=== PATIENT | female | born 1995 | race Caucasian/White ===

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

== ENCOUNTER 2020-12-17 05:58 | Emergency (ER) | payer MEDICAID ==
[~2020-12-17] VITALS: Ht 152.4 cm; Wt 54.4 kg
[2020-12-17 06:39] VITALS: BP_SYST 115
[2020-12-17] MEDS ORDERED: NACL 0.9% 1,000 ML IV ONE (07:00)
[2020-12-17 07:24] LABS: BASOPHILS % (AUTO) 0.9 % (0.0-2.0); EOSINOPHILS # (AUTO) 0.2 K/uL (0.0-0.4); EOSINOPHILS % (AUTO) 3.2 % (0.0-4.0); HEMATOCRIT 38.7 % (36-48); HEMOGLOBIN 12.4 g/dL (12.0-16.0); LYMPHOCYTES # (AUTO) 1.5 K/uL (1.0-5.5); LYMPHOCYTES % (AUTO) 31.1 % (20.5-51.5); MEAN CORPUSCULAR HEMOGLOBIN 24 pg (27-31); MEAN CORPUSCULAR HGB CONC 32 % (32-36); MEAN CORPUSCULAR VOLUME 74 fL (79.0-98.0); MONOCYTES # (AUTO) 0.6 K/uL (0.0-1.0); MONOCYTES % (AUTO) 11.8 % (1.7-9.3); NEUTROPHILS # (AUTO) 2.5 K/uL (1.8-7.7); PLATELET COUNT (AUTO) 239 K/uL (130-430); RED CELL DISTRIBUTION WIDTH 13.4 % (9.0-15.0); WHITE BLOOD COUNT (AUTO) 4.7 K/uL (4.8-10.8)
[2020-12-17 07:37] LABS: BILIRUBIN,URINE NEGATIVE (NEGATIVE); BLOOD, URINE NEGATIVE (NEGATIVE); CLARITY/URINE CLEAR (CLEAR); COLOR,URINE YELLOW (YELLOW); GLUCOSE,URINE NEGATIVE (NEGATIVE); KETONES,URINE NEGATIVE (NEGATIVE); LEUKOCYTE ESTERASE ,URINE NEGATIVE (NEGATIVE); NITRITE, URINE NEGATIVE (NEGATIVE); PROTEIN URINE NEGATIVE (NEGATIVE); UROBILINOGEN,URINE 0.2 (0.2-1.0)
[2020-12-17 07:38] LABS: CALCIUM 9.1 mg/dL (8.4-11.0); CREATININE 0.71 mg/dL (0.55-1.30); POTASSIUM 3.5 mmol/L (3.5-5.1)
[2020-12-17 07:41] LABS: PROTHROMBIN TIME 10.6 SECS (9.5-12.5)
[2020-12-17] MEDS ORDERED: KETOROLAC TROMETHAMINE 30 MG VIAL ONE (07:43)
[2020-12-17 07:44] LABS: TOTAL BILIRUBIN 0.6 mg/dL (0.0-1.0)
[2020-12-17] MEDS ORDERED: KETOROLAC TROMETHAMINE 30 MG VIAL IVP ONE (07:45)
[2020-12-17] MEDS ORDERED: NAPR-1172 PO (08:58)
[2020-12-17 09:30] VITALS: BP_SYST 116
== END 2020-12-17 09:30 | disposition home or self-care (01) ==
LOC: SED 05:58
DX: R10.9 Unspecified abdominal pain (principal)
CPT/HCPCS: 36415; 74176; 76376; 80053; 81003; 81025; 82150; 83690; 84703; 85025; 85610; 96361; 96374; 99284; J1885; J7030

== ENCOUNTER 2021-07-20 14:44 | Emergency (ER) | payer BC, MEDICAID ==
[~2021-07-20] VITALS: Ht 152.4 cm; Wt 58.1 kg
[~2021-07-20 14:44] MED LIST: NAPR-1172 PO
[2021-07-20 14:53] VITALS: BP_SYST 126
[2021-07-20] MEDS ORDERED: HYDROcodone/ACETAMIN 5-325 MG TAB (NORCO/ VICODIN) PO ONE (16:45)
[2021-07-20 18:15] LABS: BILIRUBIN,URINE NEGATIVE (NEGATIVE); BLOOD, URINE 1+ (NEGATIVE); COLOR,URINE YELLOW (YELLOW); GLUCOSE,URINE NEGATIVE (NEGATIVE); KETONES,URINE TRACE (NEGATIVE); LEUKOCYTE ESTERASE ,URINE NEGATIVE (NEGATIVE); NITRITE, URINE NEGATIVE (NEGATIVE); PH,URINE 5.5 (5.0-8.0); PROTEIN URINE NEGATIVE (NEGATIVE); UROBILINOGEN,URINE 0.2 (0.2-1.0)
[2021-07-20] MEDS ORDERED: IBUP-1969 PO (18:23)
[2021-07-20 18:35] LABS: CLARITY/URINE HAZY (CLEAR)
[2021-07-20 18:42] VITALS: BP_SYST 131
[2021-07-20 18:53] LABS: RBC,URINE 0-3 /HPF (0-3)
[2021-07-20 18:54] LABS: BACTERIA,URINE MODERATE /HPF (None Seen)
[2021-07-20 18:56] LABS: MUCUS,URINE 1+ /LPF (None Seen)
== END 2021-07-20 18:42 | disposition home or self-care (01) ==
LOC: SED 14:44
DX: M54.42 Lumbago with sciatica, left side (principal); Z79.899 Other long term (current) drug therapy
CPT/HCPCS: 72100-TC; 81000; 81025; 87086; 99284

== ENCOUNTER 2021-11-12 17:32 | Emergency (ER) | payer BC, SELFPAY ==
[~2021-11-12] VITALS: Ht 154.9 cm; Wt 56.2 kg
[2021-11-12 17:32] VITALS: BP_SYST 120
[~2021-11-12 17:32] MED LIST changes: +IBUP-1969 PO
--- NOTE | 2021-11-12 17:32 | NUR ---
BROUGHT BACK TO BED #4 AND TRIAGED. REPORT GIVEN TO SHAHNAZ
--- NOTE | 2021-11-12 18:14 | NUR ---
26 years old female alert, oriented x4 presents to er with chest pain for 1 month radiates to left shoulder denies nausea vomiting. placed on cardiac care nurse continuous pulse oximeter will continue to monitor.
[2021-11-12 19:11] LABS: BASOPHILS % (AUTO) 0.7 % (0.0-2.0); EOSINOPHILS # (AUTO) 0.1 K/uL (0.0-0.4); EOSINOPHILS % (AUTO) 1.9 % (0.0-4.0); HEMATOCRIT 36.7 % (36-48); HEMOGLOBIN 11.5 g/dL (12.0-16.0); LYMPHOCYTES # (AUTO) 0.4 K/uL (1.0-5.5); LYMPHOCYTES % (AUTO) 10.4 % (20.5-51.5); MEAN CORPUSCULAR HEMOGLOBIN 23 pg (27-31); MEAN CORPUSCULAR HGB CONC 31 % (32-36); MEAN CORPUSCULAR VOLUME 75 fL (79.0-98.0); MONOCYTES # (AUTO) 0.7 K/uL (0.0-1.0); MONOCYTES % (AUTO) 17.5 % (1.7-9.3); NEUTROPHILS # (AUTO) 2.9 K/uL (1.8-7.7); NEUTROPHILS % (AUTO) 69.5 % (40.0-70.0); PLATELET COUNT (AUTO) 245 K/uL (130-430); WHITE BLOOD COUNT (AUTO) 4.2 K/uL (4.8-10.8)
--- NOTE | 2021-11-12 19:11 | NUR ---
report endorsed to nurse Bhakta all questions answered.
[2021-11-12 19:25] LABS: ALBUMIN 3.5 g/dL (3.4-4.8); CALCIUM 8.7 mg/dL (8.4-11.0); CREATININE 0.56 mg/dL (0.55-1.30); POTASSIUM 3.8 mmol/L (3.5-5.1); TOTAL BILIRUBIN 0.3 mg/dL (0.0-1.0)
[2021-11-12] MEDS ORDERED: MAG-AL HYDROX/SIMETH 30 ML UDC PO ONE (20:00)
[2021-11-12 20:13] LABS: BILIRUBIN,URINE NEGATIVE (NEGATIVE); BLOOD, URINE NEGATIVE (NEGATIVE); CLARITY/URINE HAZY (CLEAR); COLOR,URINE YELLOW (YELLOW); GLUCOSE,URINE NEGATIVE (NEGATIVE); KETONES,URINE NEGATIVE (NEGATIVE); LEUKOCYTE ESTERASE ,URINE 1+ (NEGATIVE); NITRITE, URINE POSITIVE (NEGATIVE); PH,URINE 7.5 (5.0-8.0); PROTEIN URINE NEGATIVE (NEGATIVE); UROBILINOGEN,URINE 0.2 (0.2-1.0)
[2021-11-12 20:37] LABS: BACTERIA,URINE MANY /HPF (None Seen); MUCUS,URINE None Seen /LPF (None Seen); RBC,URINE 0-3 /HPF (0-3); URINE AMORPHOUS PHOSPHATES 3+ /HPF (None Seen); WBC,URINE 20-50 /HPF (0-3)
[2021-11-12] MEDS ORDERED: CEPH-548 PO (20:37)
[2021-11-12 21:25] VITALS: BP_SYST 136
--- NOTE | 2021-11-12 21:28 | NUR ---
Patient given written and verbal discharge instructions and verbalizes understanding. Rosa Maria Alba MD discussed with patient the results and treatment provided. Patient in stable condition. ID arm band removed. Rx of given. Patient educated on pain management and to follow up with PMD. Pain Scale 0/10. Opportunity for questions provided and answered. Medication side effect fact sheet provided.
== END 2021-11-12 21:25 | disposition home or self-care (01) ==
LOC: SED 17:32
DX: N39.0 Urinary tract infection, site not specified (principal); R10.10 Upper abdominal pain, unspecified
CPT/HCPCS: 36415; 80053; 81000; 83690; 84703; 85025; 87086; 99283